=== PATIENT | female | born 1965 | race Caucasian/White ===

== ENCOUNTER → 2017-09-06 | Outpatient (CLI) | payer OTHER ==
[~2017-09-06] MED LIST: COLACE100 MG PO; HYDROCODONE-AP1 EAC6 PO
== END ==
LOC: M.RAD 08:57
DX: R05 Cough (principal)

== ENCOUNTER → 2018-11-06 | Outpatient (CLI) | payer OTHER | LOC: M.RAD 09:55 | DX: Z12.31 Encounter for screening mammogram for malignant neoplasm of breast (principal) ==

== ENCOUNTER → 2021-05-25 | Outpatient (CLI) | payer OTHER | LOC: M.RAD 12:51 | PROVIDERS: ATTEND Family Medicine | DX: R92.0 Mammographic microcalcification found on diagnostic imaging of breast (principal) ==